=== PATIENT | female | born 1945 | race Caucasian/White ===

== ENCOUNTER → 2016-10-04 | Outpatient (CLI) | payer BC, OTHER ==
[~2016-10-04] MED LIST: ACET-1138 PO; ALPR1TAB3 PO; ASPI81TA25 PO; BENA1TAB53 PO; BIOTPOW17 PO; CHOL1000 PO; CRS/10 PO; HYDR25TA4 PO; MELO7.5T5 PO; NXM/40 PO; ONDA8TAB6 PO; SNK PO; ULT50X PO; VITA400C3 PO
[2016-10-05 10:57] LABS: ESTIMATED AVERAGE GLUCOSE 140 mg/dl; HA1C FLAG Normal (Normal)
== END | disposition home or self-care (01) ==
LOC: C.LABSPEC 09:39
PROVIDERS: ATTEND Internal Medicine
DX: R73.01 Impaired fasting glucose (principal)

== ENCOUNTER 2016-10-29 05:02 | Inpatient (IN) | payer BC, OTHER ==
[2016-10-04 13:01] VITALS: BMI 28.0
--- NOTE | 2016-10-04 13:38 | PAT Medication Instructions ---
Service Date October 04, 2016. Current Home Medication List Alprazolam (Xanax), 1 MG PO HS Aspirin (Aspir-Low), 1 TAB PO HS Benazepril (Lotensin), 40 MG PO QAM Cholecalciferol (Vitamin D3), 1 TAB PO QPM Esomeprazole Magnesium (Nexium), 40 MG PO Q2D Hydrochlorothiazide (Hctz), 25 MG PO QAM Meloxicam (Mobic), 7.5 MG PO QAM Rosuvastatin Calcium (Crestor), 10 MG PO QAM Vitamin E (Vitamin E 400 Iu), 400 INTER.UNIT PO QPM [Biotin], 1,000 MCG PO QPM Medication Instructions For Your Scheduled Surgery Meloxicam (Mobic), 7.5 MG PO QAM (patient will check with surgeon for instructions) - Hold the following medications 2 weeks prior to surgery: Vitamin E (Vitamin E 400 Iu), 400 INTER.UNIT PO QPM Biotin, 1,000 MCG PO QPM - Hold the following medications the morning of surgery: Hydrochlorothiazide (Hctz), 25 MG PO QAM Benazepril (Lotensin), 40 MG PO QAM - Take the following medications the morning of surgery with a sip of water: Rosuvastatin Calcium (Crestor), 10 MG PO QAM Esomeprazole Magnesium (Nexium), 40 MG PO Q2D - Take the following medications as scheduled the night before surgery: Cholecalciferol (Vitamin D3), 1 TAB PO QPM Alprazolam (Xanax), 1 MG PO HS Aspirin (Aspir-Low), 1 TAB PO HS If you have any questions please call us at [phone] or [phone] ( [facility]) or [phone]
--- NOTE | 2016-10-04 14:11 | DIAGNOSTIC IMAGING REPORT ---
CHEST PREADMISSION(PA/LAT) CLINICAL HISTORY: Preoperative chest COMPARISON STUDY: No previous studies for comparison. FINDINGS: The cardiac and mediastinal contours are normal. There is no evidence of focal pulmonary consolidation. There is no evidence of failure. No pleural effusions are visualized.[ IMPRESSION: No active disease in the chest. Electronically signed by: Fabián Townsend M.D. 10/04/2016 2:09 PM Dictated Date/Time: 10/04/2016 2:09 PM
[2016-10-04 14:53] LABS: BASO % 0.5 %; BASO ABS # 0.02 K/uL (0-0.2); COMPLETE YES; EOS % 1.4 %; HEMATOCRIT 39.3 % (37-47); IG% 0.2 %; LYMPH % 31.7 %; LYMPH ABS # 1.35 K/uL (1.2-3.4); MEAN CELL VOLUME 91.6 fL (80-100); MEAN CORPUSCULAR HEMOGLOBIN 30.1 pg (25-34); MEAN CORPUSCULAR HGB CONC 32.8 g/dl (32-36); MEAN PLATELET VOLUME 10.5 fL (7.4-10.4); MONO % 9.6 %; NEUT % 56.6 %; PLATELET COUNT 217 K/uL (130-400); RED BLOOD COUNT 4.29 M/uL (4.2-5.4); WHITE BLOOD COUNT 4.26 K/uL (4.8-10.8)
[2016-10-04 14:59] LABS: URINE APPEARANCE CLEAR (CLEAR); URINE BILIRUBIN NEG (NEG); URINE COLOR YELLOW; URINE EPITHELIAL CELL AUTO 0-5 /lpf (0-5); URINE NITRITE NEG (NEG); URINE SPECIFIC GRAVITY 1.012 (1.000-1.030); UROBILINOGEN NEG (NEG); ZZUR CULT IF INDIC CLEAN CATCH NO
[2016-10-04 15:03] LABS: MANUAL MICROSCOPIC REQUIRED? NO; REVIEW REQ? NO
[2016-10-04 15:03] LABS: PARTIAL THROMBOPLASTIN RATIO 1.1; PROTHROMBIN TIME (PATIENT) 10.4 SECONDS (9.0-12.0)
[2016-10-04 15:10] LABS: BUN/CREATININE RATIO 18.8 (10-20); CALCIUM 9.1 mg/dl (8.5-10.1); CREATININE 0.8 mg/dl (0.60-1.20); POTASSIUM 3.7 mmol/L (3.5-5.1)
--- NOTE | 2016-10-26 08:52 | HISTORY & PHYSICAL EXAMINATION ---
DATE OF ADMISSION: 10/29/2016 CHIEF COMPLAINT: Left hip pain. HISTORY OF PRESENT ILLNESS: Ms. Thao is a 71-year-old female with a 4-year history of left hip pain. The patient rates her pain an 8/10. She has pain with her daily activities. She has limited standing and walking tolerance. Pain is worse with weightbearing. The patient has had injections, home exercise program and Tylenol. She also underwent bursectomy procedure without relief. She has failed conservative treatment and is scheduled for left hip replacement. PAST MEDICAL HISTORY: Hypertension, hypercholesterolemia, and anxiety. She denies heart disease, diabetes or DVT. PAST SURGICAL HISTORY: Left hip bursectomy. SOCIAL HISTORY: She denies alcohol or tobacco use. She lives in a split level home. She is and works as a school athletic director. FAMILY HISTORY: Negative for DVT. MEDICATIONS: Aspirin 81 mg, vitamin D 1000 international units, vitamin E 400 international units, Biotin 1000 mg, benazepril 40 mg, hydrochlorothiazide 25 mg, alprazolam 1 mg at bedtime, Crestor 10 mg, Nexium 40 mg. ALLERGIES: SULFA. REVIEW OF SYSTEMS: See HPI. Ten other systems reviewed, all negative. PHYSICAL EXAMINATION: VITAL SIGNS: Height is 5 foot 4 inches, weight 161 pounds, BMI is 28. GENERAL: This is a well-developed, well-nourished female who is alert and oriented x3. Mood and affect are appropriate. HEAD, EYES, EARS, NOSE, AND THROAT: Normocephalic, atraumatic. Mucous membranes are moist and intact. NECK: Supple without lymphadenopathy. HEART: Regular rate and rhythm without murmurs, rubs or gallops. LUNGS: Clear to auscultation without wheezes or rhonchi. ABDOMEN: Soft and nontender. Bowel sounds are equal and active. EXTREMITIES: No ecchymosis, redness or warmth. Thigh and calf are soft and nontender. Log roll of the hip reproduces pain in the groin. She is neurovascularly intact with +5/5 strength. She walks with an antalgic gait. She has trochanteric tenderness. X-RAY EXAMINATION: AP and lateral views show joint space narrowing and osteophyte formation. IMPRESSION: Degenerative joint disease, left hip. PLAN: The patient will be admitted for a left total hip arthroplasty, direct anterior approach. We will plan on aspirin for DVT prophylaxis. She has [facility] set up for home physical therapy.
[2016-10-29] VITALS (9 sets, daily range): BP systolic 111–132; BP diastolic 72–87; PULSE 75–89; TEMP 36.3–36.6; O2SAT 93–100; Ht 162.6 cm; Wt 73.6 kg
[~2016-10-29] VITALS: Ht 162.6 cm; Wt 73.6 kg
[~2016-10-29 05:02] MED LIST changes: -ACET-1138 PO; -ONDA8TAB6 PO; -SNK PO; -ULT50X PO; +[UNRECOGNIZED DRUG - REMARK] SCH
[2016-10-29] MEDS ORDERED: FAMOTIDINE 20 MG TAB PO SCH (06:00)
[2016-10-29] MEDS ORDERED: DEXAMETHASONE 4 MG TAB PO SCH (06:00)
[2016-10-29] MEDS ORDERED: METOCLOPRAMIDE HCL 10 MG TAB PO SCH (06:00)
[2016-10-29] MEDS ORDERED: ACETAMINOPHEN 500 MG TAB PO SCH (06:00)
[2016-10-29] MEDS ORDERED: LACTATED RINGER'S 1000ML 500 ML IV ONE (06:00)
[2016-10-29] MEDS ORDERED: CEFAZOLIN 2000 MG/60 ML D5W 60 ML IV SCH (06:00)
[2016-10-29] MEDS ORDERED: GABAPENTIN 300 MG CAP PO SCH (06:00)
[2016-10-29] MEDS ORDERED: LACTATED RINGER'S 1000ML 1,000 ML IV SCH (06:00)
[2016-10-29] MEDS ORDERED: ROPIVACAINE 5MG/ML 30 ML 150 MG, BUPIVACAINE/EPINEPHR 0.5% MPF 30 ML, KETOROLAC TROMETH... INFIL SCH ×7 (06:00)
[2016-10-29] MEDS ORDERED: VANCOMYCIN INJ 400 MG in NSS 100ML IR SCH (06:00)
[2016-10-29] MEDS ORDERED: POLYMYXIN B SULFATE 100,000 UNITS in NSS 100ML IR SCH (06:00)
[2016-10-29] MEDS: TRANEXAMIC ACID INJ 1,000 MG in SODIUM CHLORIDE 0.9% 100ML 100 ML IV SCH ×2 (06:02→06:30)
[2016-10-29] MEDS ORDERED: BACITRACIN 50000 UNIT VIAL ONE (06:28)
[2016-10-29] MEDS ORDERED: POVIDONE-IODINE OP SOLN 30 ML BTL ONE (06:28)
[2016-10-29] MEDS ORDERED: ORTHO JOINT ANESTHETIC ONE (06:28)
[2016-10-29] MEDS ORDERED: BUPIVACAINE 0.5 % 5 MG/1 ML PF 10ML VIAL ONE (06:29)
[2016-10-29] MEDS ORDERED: MIDAZOLAM HCL 1 MG/ML 2ML VIAL ONE ×3 (06:37→07:08)
[2016-10-29] MEDS ORDERED: FENTANYL CITRATE INJ 50 MCG/1 ML 2 ML VIAL ONE ×2 (06:38→07:18)
--- NOTE | 2016-10-29 06:40 | History & Physical Bridge Note ---
H&P Re-Evaluation Bridge Note: I have examined the patient, reviewed the History & Physical and in the interval since the performance of the History & Physical I have noted the following changes of clinical significance: No changes noted
[2016-10-29] MEDS ORDERED: LIDOCAINE HCL 2% 2 ML VIAL (20MG/ML) ONE (07:40)
[2016-10-29] MEDS ORDERED: ONDANSETRON INJ 2 MG/ML 2 ML VIAL ONE ×2 (07:40→09:43)
[2016-10-29] MEDS ORDERED: PROPOFOL IV EMULSION 10 MG/ML 20 ML VIAL IV ONE (07:40)
--- NOTE | 2016-10-29 08:25 | [facility] Post Operative Brief Note ---
Immediate Operative Summary Operative Date Oct 29, 2016. Pre-Operative Diagnosis Left Hip Degenerative Joint Disease Post-Operative Diagnosis Left Hip Degenerative Joint Disease Procedure(s) Performed Left Total Hip Arthroplasty, Direct Anterior Approach Surgeon Dr. Dominik Owens Net Developer Software Engineer C Surgeon(s) Lolly Shaffer PA-C Estimated Blood Loss 100mL Findings DJD Specimens A: Left Femoral Head Complication(s) None Disposition Recovery Room / PACU
[2016-10-29] MEDS ORDERED: MoRPHine SULFATE 2 MG/ML CARP IV PRN (08:30)
[2016-10-29] MEDS ORDERED: SOD PHOSPHATE/SOD BIPHOSPHATE ENEMA 132 ML BTL PR PRN (08:30)
[2016-10-29] MEDS ORDERED: BISACODYL 10 MG SUPP PR PRN (08:30)
[2016-10-29] MEDS ORDERED: MAGNESIUM HYDROXIDE SUSP 30 ML UDC PO PRN (08:30)
[2016-10-29] MEDS ORDERED: ALUMINUM/MAGNESIUM/SIMETH (MAALOX MAX) 30 ML UDC PO PRN (08:30)
[2016-10-29] MEDS ORDERED: ZOLPIDEM TARTRATE 5 MG TAB PO PRN (08:30)
[2016-10-29] MEDS ORDERED: DiphenhydrAMINE HCL 50 MG/ML VIAL IV PRN (08:30)
--- NOTE | 2016-10-29 08:38 | DIAGNOSTIC IMAGING REPORT ---
INTRAOPERATIVE LEFT HIP SINGLE VIEW CLINICAL HISTORY: Left hip replacement COMPARISON STUDY: No previous studies for comparison. FINDINGS: A single intraoperative fluoroscopic spot image is provided for interpretation. 9 seconds of fluoroscopic time was utilized. A total left hip arthroplasty is visualized. No dislocation is evident. IMPRESSION: Intraoperative radiograph demonstrating a total left hip arthroplasty. Electronically signed by: Fabián Townsend M.D. 10/29/2016 8:37 AM Dictated Date/Time: 10/29/2016 8:36 AM
[2016-10-29] MEDS: MULTIVITAMIN TAB PO SCH (09:00)
[2016-10-29] MEDS: ROSUVASTATIN CALCIUM 10 MG TAB PO SCH (09:00)
[2016-10-29] MEDS: PANTOprazole SOD 40 MG TAB PO SCH (09:00)
[2016-10-29] MEDS: HYDROCHLOROTHIAZIDE 25 MG TAB PO SCH (09:00)
[2016-10-29] MEDS: ASPIRIN 81 MG ECTAB PO SCH ×2 (09:00→21:35)
[2016-10-29] MEDS: BENAZEPRIL HCL 10 MG TAB PO SCH (09:00)
[2016-10-29] MEDS ORDERED: ONDANSETRON INJ 2 MG/ML 2 ML VIAL IV PRN (09:15)
[2016-10-29] MEDS ORDERED: PHENYLEPHRINE 100MCG/ML 5ML SYR IV PRN (09:15)
[2016-10-29] MEDS ORDERED: HYDROmorphone INJ 2 MG/ML SYR/VIAL IV PRN (09:15)
[2016-10-29] MEDS ORDERED: KETOROLAC TROMETHAMINE 30 MG/ML VIAL IV. PRN (09:15)
[2016-10-29] MEDS ORDERED: ATROPINE SULFATE 0.1 MG/ML 5ML SYR IV PRN (09:15)
[2016-10-29] MEDS ORDERED: EpHEDrine SULFATE INJ 50 MG/ML AMP IV PRN (09:15)
--- NOTE | 2016-10-29 09:53 | Anesthesiology Progress Note ---
Anesthesia Post Op Note Date & Time Oct 29, 2016 at 09:52 Vital Signs Pain Intensity: 0 Vital Signs Past 12 Hours Date Time Temp Pulse Resp B/P (MAP) Pulse Ox O2 Delivery O2 Flow Rate FiO2 10/29/16 09:12 112/54 10/29/16 09:10 90 23 10/29/16 09:10 88 23 99 10/29/16 09:07 103/62 10/29/16 09:05 79 21 10/29/16 09:05 80 21 100 10/29/16 09:02 107/59 10/29/16 09:00 75 16 10/29/16 09:00 76 16 98 10/29/16 08:57 101/60 10/29/16 08:55 75 15 97 10/29/16 08:55 76 15 10/29/16 08:52 94/68 10/29/16 08:50 91 19 10/29/16 08:50 91 19 95 10/29/16 08:47 92/52 10/29/16 08:45 36.8 76 20 92/52 96 Mask 10 10/29/16 05:34 36.6 89 20 126/87 97 Room Air Notes Mental Status: alert / awake / arousable, participated in evaluation Pt Amnestic to Procedure: Yes Nausea / Vomiting: adequately controlled Pain: adequately controlled Airway Patency, RR, SpO2: stable & adequate BP & HR: stable & adequate Hydration State: stable & adequate Anesthetic Complications: no major complications apparent
--- NOTE | 2016-10-29 10:05 | DIAGNOSTIC IMAGING REPORT ---
LEFT PELVIS/UNILATERAL HIP 1 VIEW CLINICAL HISTORY: Left hip degenerative arthritis. Total hip arthroplasty. COMPARISON: None FINDINGS: Alignment of the total left hip arthroplasty is anatomic. There is no periprosthetic fracture or unexpected radiopaque foreign body. Acetabular screw is in place. Surgical drain is noted. IMPRESSION: Expected findings following total left hip arthroplasty. Electronically signed by: Tucker Fischer M.D. 10/29/2016 10:04 AM Dictated Date/Time: 10/29/2016 10:03 AM
[2016-10-29] MEDS: METOCLOPRAMIDE HCL INJ 5 MG/ML 2 ML VIAL IV PRN (11:58)
[2016-10-29] MEDS: KETOROLAC TROMETHAMINE 15 MG/ML VIAL IV. SCH ×3 (12:30→23:22)
[2016-10-29] MEDS: SODIUM CHLORIDE 0.45% 1000ML 1,000 ML IV SCH ×2 (12:30→22:42)
[2016-10-29] MEDS: ACETAMINOPHEN 500 MG TAB PO SCH ×3 (14:00→21:34)
[2016-10-29] MEDS: CEFAZOLIN IV 1,000 MG in DEXTROSE 5% 50ML 50 ML IV SCH ×2 (14:40→22:34)
[2016-10-29] MEDS: ONDANSETRON INJ 2 MG/ML 2 ML VIAL IV PRN (15:10)
[2016-10-29] MEDS ORDERED: TRANEXAMIC ACID INJ 1,000 MG in SODIUM CHLORIDE 0.9% 100ML 100 ML IV ONE (15:30)
[2016-10-29] MEDS: TRAMADOL HCL 50 MG TAB PO PRN ×2 (18:04→23:21)
--- NOTE | 2016-10-29 20:48 | OPERATIVE REPORT ---
DATE OF OPERATION: 10/29/2016 PREOPERATIVE DIAGNOSIS: Degenerative arthritis, left hip. POSTOPERATIVE DIAGNOSIS: Same. PROCEDURE: Left total hip replacement. SURGEON: Dr. Owens. NUCLEAR POWERPLANT MECHANIC HELPER: EVER Vidal ANESTHESIA: Spinal. BLOOD LOSS: 100 mL. REPLACEMENT FLUIDS: 1800 mL crystalloid. DRAINS: Hemovacs x2. CULTURES: None. COMPLICATIONS: None. COMPONENTS USED: [employer] hip system: Acetabulum size 38, femur size 3 standard offset, femoral head 0, neck length 32 mm. NOTE: Lolly Shaffer was present and assisted throughout due to the complicated nature of this case. She helped with preparation and set up. She first assisted throughout and she personally closed the fascial, subcutaneous and skin layers and applied the postoperative dressing. DESCRIPTION OF PROCEDURE: Following satisfactory spinal, the patient was supine. The left leg was placed in the traction device, the right leg was placed in the well leg hernandez. The left leg was prepared with ChloraPrep and draped sterilely. Following a surgical time-out, an anterior approach was performed in the interval between the sartorius and tensor muscles. The circumflex femoral vessels were identified and ligated. An anterior capsulotomy was performed exposing a severely arthritic femoral neck and head. The femoral neck and head were trimmed and removed. The acetabular self-retraining retractors placed. Under fluoroscopic guidance, the acetabulum was reamed, a 48 shell was impacted into an anatomic position and secured with a dome screw. Local anesthetic was placed and after irrigation, the polyethylene liner was placed. The femur was then placed in a position of external rotation, extension and adduction. Femoral canal was prepared up to a size 3. Intraoperative fluoroscopy showed good fit and fill of the proximal canal and baptist of leg lengths using fluoroscopic landmarks. The hip was dislocated. The trial component was removed. The final implant was placed. The hip was reduced and a Betadine soak was performed. Fluoroscopy confirmed the position. After 3 minutes, the Betadine was irrigated. The capsule was closed with 1 Vicryl interrupted. A drain was placed. The fascia was then closed with a running suture of 1 Vicryl. The subcutaneous tissues with 1 and 2-0 Vicryl and the skin with a running subcuticular stitch of 3-0 V-Loc. Dermabond and a dry dressing were applied. The patient was returned to her bed in stable condition. I attest to the content of the Intraoperative Record and any orders documented therein. Any exception s are noted below.
[2016-10-29] MEDS: SENNA 8.6 MG TAB PO SCH (21:35)
[2016-10-29] MEDS: TOCOPHERYL, DL-ALPHA 400 INTER.UNIT CAP PO SCH (21:36)
[2016-10-29] MEDS: CHOLECALCIFEROL 1000 INTER.UNIT TAB PO SCH (21:37)
[2016-10-29] MEDS: ALPRAZOLAM 0.5 MG TAB PO SCH (22:39)
[2016-10-30] VITALS (7 sets, daily range): BP systolic 105–126; BP diastolic 67–76; PULSE 70–77; TEMP 36.3–36.8; O2SAT 92–98
[2016-10-30] MEDS: TRAMADOL HCL 50 MG TAB PO PRN ×4 (03:52→21:36)
[2016-10-30] MEDS: KETOROLAC TROMETHAMINE 15 MG/ML VIAL IV. SCH ×4 (05:38→23:56)
[2016-10-30] MEDS: ACETAMINOPHEN 500 MG TAB PO SCH ×3 (05:38→21:34)
[2016-10-30 07:35] LABS: BASO % 0.1 %; BASO ABS # 0.01 K/uL (0-0.2); COMPLETE YES; HEMATOCRIT 27.6 % (37-47); IG% 0.2 %; LYMPH % 7.5 %; LYMPH ABS # 1.27 K/uL (1.2-3.4); MEAN CELL VOLUME 90.5 fL (80-100); MEAN CORPUSCULAR HEMOGLOBIN 31.1 pg (25-34); MEAN CORPUSCULAR HGB CONC 34.4 g/dl (32-36); MEAN PLATELET VOLUME 10.4 fL (7.4-10.4); MONO % 7.5 %; NEUT % 84.7 %; PLATELET COUNT 201 K/uL (130-400); RED BLOOD COUNT 3.05 M/uL (4.2-5.4)
--- NOTE | 2016-10-30 07:51 | Orthopedic Progress Note ---
Orthopedic Progress Note Date of Service Oct 30, 2016. Subjective Post OP Day: 1 Reports: feeling well, calf pain, Denies: chest pain, SOB, nausea / vomiting Additional Notes: Pt having some mild burning on urination since surgery. No han used. No other complaints. Objective calves soft nontender, N/V intact, hip located, dressing C/D/I, A&O x3, toes mobile Date Time Temp Pulse Resp B/P (MAP) Pulse Ox O2 Delivery O2 Flow Rate FiO2 10/30/16 03:41 36.8 77 16 105/67 (80) 95 Room Air 10/30/16 00:00 Room Air 10/29/16 22:54 36.4 86 16 129/84 (99) 93 Room Air 10/29/16 20:17 36.4 86 19 118/72 (87) 95 Room Air 10/29/16 16:29 Nasal Cannula 2.0 10/29/16 14:59 36.4 88 18 121/78 (92) 97 Nasal Cannula 2.0 10/29/16 13:21 82 18 111/74 (86) 100 Nasal Cannula 2.0 10/29/16 12:10 80 16 112/75 (87) 100 Nasal Cannula 2.0 10/29/16 11:10 75 20 113/74 (87) 99 Nasal Cannula 2.0 10/29/16 10:40 76 16 132/83 (99) 100 Nasal Cannula 2.0 10/29/16 10:21 100 2.0 10/29/16 10:20 Nasal Cannula 2.0 10/29/16 10:11 36.3 75 16 113/74 (87) 100 Nasal Cannula 2.0 10/29/16 10:01 36.1 72 17 123/63 97 Nasal Cannula 2 10/29/16 09:51 36.1 73 17 110/78 100 Nasal Cannula 2 10/29/16 09:48 71 20 10/29/16 09:48 71 20 97 10/29/16 09:47 112/64 10/29/16 09:43 74 15 10/29/16 09:43 73 15 99 10/29/16 09:42 110/70 10/29/16 09:38 72 17 97 10/29/16 09:38 73 17 10/29/16 09:37 115/63 10/29/16 09:33 72 16 10/29/16 09:33 72 16 97 10/29/16 09:32 108/62 10/29/16 09:28 74 20 98 10/29/16 09:28 73 20 10/29/16 09:27 111/65 10/29/16 09:23 75 18 10/29/16 09:23 75 18 96 10/29/16 09:22 108/70 10/29/16 09:18 78 17 97 10/29/16 09:18 76 17 10/29/16 09:17 109/63 10/29/16 09:13 74 16 10/29/16 09:13 75 16 98 10/29/16 09:12 112/54 10/29/16 09:10 90 23 10/29/16 09:10 88 23 99 10/29/16 09:07 103/62 10/29/16 09:05 79 21 10/29/16 09:05 80 21 100 10/29/16 09:02 107/59 10/29/16 09:00 75 16 10/29/16 09:00 76 16 98 10/29/16 08:57 101/60 10/29/16 08:55 75 15 97 10/29/16 08:55 76 15 10/29/16 08:52 94/68 10/29/16 08:50 91 19 10/29/16 08:50 91 19 95 10/29/16 08:47 92/52 10/29/16 08:45 36.8 76 20 92/52 96 Mask 10 Laboratory Results 24 Hours: Test 10/30/16 07:03 White Blood Count 17.00 K/uL Red Blood Count 3.05 M/uL Hemoglobin 9.5 g/dL Hematocrit 27.6 % Mean Corpuscular Volume 90.5 fL Mean Corpuscular Hemoglobin 31.1 pg Mean Corpuscular Hemoglobin Concent 34.4 g/dl Platelet Count 201 K/uL Mean Platelet Volume 10.4 fL Neutrophils (%) (Auto) 84.7 % Lymphocytes (%) (Auto) 7.5 % Monocytes (%) (Auto) 7.5 % Eosinophils (%) (Auto) 0.0 % Basophils (%) (Auto) 0.1 % Neutrophils # (Auto) 14.41 K/uL Lymphocytes # (Auto) 1.27 K/uL Monocytes # (Auto) 1.27 K/uL Eosinophils # (Auto) 0.00 K/uL Basophils # (Auto) 0.01 K/uL Assessment & Plan Assessment: POD 1 s/p Left EMANUEL Mild burning on urination. Plan: PT/OT Planning for dc to home with Services Will get UA today Possible dc home today Inhouse Planning Pain Management: Toradol, Ultram, Morphine, PO Tylenol DVT Prophylaxis: TEDs, SCDs, ASA Discharge Planning Discharge Planning: home with home health Pain Management: Ultram, PO Tylenol DVT Prophylaxis: TEDs, ASA Therapy: Physical Therapy
[2016-10-30 08:06] LABS: BUN/CREATININE RATIO 28.9 (10-20); CREATININE 0.72 mg/dl (0.60-1.20); POTASSIUM 4.1 mmol/L (3.5-5.1)
[2016-10-30] MEDS ORDERED: ULT50X PO (08:06)
[2016-10-30] MEDS ORDERED: SNK PO (08:06)
[2016-10-30] MEDS ORDERED: ASPI81TA25 PO (08:06)
[2016-10-30] MEDS ORDERED: ACET-1138 PO (08:06)
[2016-10-30] MEDS ORDERED: ONDA8TAB6 PO (08:06)
--- NOTE | 2016-10-30 08:07 | Discharge Instructions ---
Discharge Instructions Date of Service Oct 30, 2016. Admission Reason for Admission: Left Hip Degenerative Arthritis Discharge Discharge Diagnosis / Problem: sp left EMANUEL, direct anterior Discharge Goals Goal(s): Decrease discomfort, Improve function, Increase independence Activity Recommendations Activity Limitations: per Instructions/Follow-up section . Instructions / Follow-Up Instructions / Follow-Up ACTIVITY RECOMMENDATIONS: SELF CARE INSTRUCTIONS AFTER TOTAL HIP REPLACEMENT : Direct Anterior Approach Until the incision and soft tissues around your hip have healed, there is a possibility that the hip prosthesis could dislocate. A. Hip flexion ( Up & Down out of chair or steps ) may be difficult. This is normal. B. Numbness in front of the thigh is also normal for a few weeks. C. Use hand rails when walking on stairs. D. Wear low heeled shoes with non-slip soles. E. Be sure that your floors are free of things that could trip you - throw rugs , electrical cords, small objects. Avoid wet and waxed floors, especially with crutches and canes. F. Try to walk several times a day with rest periods between. G. Continue with all the exercises taught to you in the hospital. Again, make walking a part of your daily routine. SPECIAL CARE INSTRUCTIONS: VERY IMPORTANT TO READ AND REVIEW A. You may still be at risk for phlebitis and blood clots. 1. Wear surgical stockings (JENNIFER hose) for 2 weeks after surgery to improve circulation and reduce swelling. 2. Take Aspirin 81mg twice daily for 4 weeks or as directed by your doctor. This is your blood thinner. 3. High risk patients may be prescribed a stronger blood thinner if necessary. 4. If you are on Coumadin normally, your family doctor/senior abap developer should monitor your blood work. Expect a phone call the day of or the day after bloodwork is drawn to adjust your dosage. B. You must take antibiotics before having dental work, bladder, bowel and other surgery. Your doctor will provide you with a permanent card to carry describing precautions. C. Call [facility] if you have a fever, redness or swelling around the incision, cloudy drainage from incision, or sudden increase in pain in your hip, not relieved by your regular pain medication. D. Please call the office at if you have any concerns or questions about your operation or recovery. * YOU MAY SHOWER, NO TUB BATHS UNTIL CLEARED BY YOUR DOCTOR. - Keep an extra close eye on the top portion of your incision. Be sure to keep clean & dry. * WEAR JENNIFER HOSE 20 HOURS PER DAY FOR 2 WEEKS. * YOU MAY PROGRESS FROM A WALKER, TO A CANE, TO INDEPENDENT AT YOUR OWN PACE. * MOST PATIENTS WILL HAVE HOME NURSING FOR THERAPY. IF YOU DECIDE TO DO OUTPATIENT PHYSICAL THERAPY, PLEASE SCHEDULE THIS 3 TIMES PER WEEK. * DERMABOND Prineo- This is a mesh tape dressing that is covered with glue. It should remain in place until the incision is properly healed, usually 10-14 days. This dressing is designed to naturally slough off. You may trim the excess mesh tape as it peels off. Incision may be briefly wet in a shower. Dry immediately by blotting with a clean, dry towel. Do not bath or swim until instructed by your doctor. Do not scratch, rub, or pick at the dressing. Do not apply any topical ointments or lotions until dressing is completely removed and/or instructed by your doctor. There may be a small piece of suture material at one end of your incision. Do not pull or trim this. If it is bothersome or catching on clothing, you may cover it with a band-aid. FOLLOW UP VISIT: If appointment is not already scheduled: Please call [facility] to make a follow-up appointment for 2 weeks after your surgery at . Current Hospital Diet Patient's current hospital diet: Regular Diet Discharge Diet Recommended Diet: Regular Diet Procedures Procedures Performed: Left Total Hip Arthroplasty, Direct Anterior Approach Pending Studies Studies pending at discharge: no Laboratory Results Hemoglobin A1c Test 10/04/16 13:47 Range/Units Estimated Average Glucose 140 mg/dl Hemoglobin A1c 6.5 H 4.5-5.6 % Medical Emergencies . Who to Call and When: Medical Emergencies: If at any time you feel your situation is an emergency, please call 911 immediately. . Non-Emergent Contact Non-Emergency issues call your: Surgeon . "Provider Documentation" section prepared by Lolly Shaffer. . VTE Core Measure Inpt VTE Proph given/why not?: Other Anticoagulation, T.E.D. Stockings, SCD's [place] Drug Monitoring Program Search Results: patient reviewed within database, no issues identified
[2016-10-30 08:20] LABS: CALCIUM 7.9 mg/dl (8.5-10.1)
[2016-10-30] MEDS: SODIUM CHLORIDE 0.45% 1000ML 1,000 ML IV SCH ×2 (08:34→18:03)
[2016-10-30] MEDS: ROSUVASTATIN CALCIUM 10 MG TAB PO SCH (08:35)
[2016-10-30] MEDS: HYDROCHLOROTHIAZIDE 25 MG TAB PO SCH (08:35)
[2016-10-30] MEDS: MULTIVITAMIN TAB PO SCH (08:36)
[2016-10-30] MEDS: BENAZEPRIL HCL 10 MG TAB PO SCH (08:37)
[2016-10-30] MEDS: PANTOprazole SOD 40 MG TAB PO SCH (08:37)
[2016-10-30] MEDS: ASPIRIN 81 MG ECTAB PO SCH ×2 (08:38→21:33)
--- NOTE | 2016-10-30 09:37 | Anesthesiology Progress Note ---
Anesthesia Post Op Note Date & Time Oct 30, 2016 at 09:37 Vital Signs Pain Intensity: 4.0 Vital Signs Past 12 Hours Date Time Temp Pulse Resp B/P (MAP) Pulse Ox O2 Delivery O2 Flow Rate FiO2 10/30/16 08:08 95 Room Air 10/30/16 07:47 36.3 72 17 126/76 (93) 95 Room Air 10/30/16 03:41 36.8 77 16 105/67 (80) 95 Room Air 10/30/16 00:00 Room Air 10/29/16 22:54 36.4 86 16 129/84 (99) 93 Room Air Notes Mental Status: alert / awake / arousable, participated in evaluation Pt Amnestic to Procedure: Yes Nausea / Vomiting: adequately controlled Pain: adequately controlled Airway Patency, RR, SpO2: stable & adequate BP & HR: stable & adequate Hydration State: stable & adequate Neuraxial Anesthesia: sensory block resolved Anesthetic Complications: no major complications apparent
[2016-10-30 10:05] LABS: URINE APPEARANCE CLEAR (CLEAR); URINE BILIRUBIN NEG (NEG); URINE COLOR YELLOW; URINE EPITHELIAL CELL AUTO >30 /lpf (0-5); URINE NITRITE NEG (NEG); URINE PH 5.5 (4.5-7.5); URINE SPECIFIC GRAVITY 1.034 (1.000-1.030); UROBILINOGEN NEG (NEG); ZZUR CULT IF INDIC CLEAN CATCH YES
[2016-10-30 10:14] LABS: MANUAL MICROSCOPIC REQUIRED? NO; REVIEW REQ? YES
[2016-10-30] MEDS: ONDANSETRON INJ 2 MG/ML 2 ML VIAL IV PRN (11:27)
[2016-10-30] MEDS: METOCLOPRAMIDE HCL INJ 5 MG/ML 2 ML VIAL IV PRN (13:16)
[2016-10-30] MEDS ORDERED: NURSING VERBAL MED ORDER ONE (16:00)
[2016-10-30] MEDS ORDERED: PROMETHAZINE HCL INJ 25 MG in SODIUM CHLORIDE 0.9% 50ML 50 ML IV PRN (16:30)
[2016-10-30] MEDS: SENNA 8.6 MG TAB PO SCH (21:00)
[2016-10-30] MEDS: TOCOPHERYL, DL-ALPHA 400 INTER.UNIT CAP PO SCH (21:00)
[2016-10-30] MEDS: CHOLECALCIFEROL 1000 INTER.UNIT TAB PO SCH (21:00)
[2016-10-30] MEDS: ALPRAZOLAM 0.5 MG TAB PO SCH (23:21)
[2016-10-31] MEDS: SODIUM CHLORIDE 0.45% 1000ML 1,000 ML IV SCH (03:57)
[2016-10-31] MEDS: KETOROLAC TROMETHAMINE 15 MG/ML VIAL IV. SCH (05:22)
[2016-10-31] MEDS: ACETAMINOPHEN 500 MG TAB PO SCH (05:22)
[2016-10-31 07:37] VITALS: BP 126/72; PULSE 74; TEMP 36.7; O2SAT 92
--- NOTE | 2016-10-31 07:49 | Orthopedic Progress Note ---
Orthopedic Progress Note Date of Service Oct 31, 2016. Subjective Post OP Day: 2 Reports: feeling well, Denies: chest pain, SOB, nausea / vomiting, light headedness, calf pain Objective calves soft nontender, N/V intact, hip located, dressing C/D/I, A&O x3, toes mobile Date Time Temp Pulse Resp B/P (MAP) Pulse Ox O2 Delivery O2 Flow Rate FiO2 10/31/16 07:37 36.7 74 18 126/72 (90) 92 Room Air 10/31/16 00:00 Room Air 10/30/16 22:55 36.7 75 16 115/72 (86) 92 Room Air 10/30/16 15:45 Room Air 10/30/16 15:04 36.6 75 16 111/69 (83) 98 Room Air 10/30/16 11:48 36.3 70 18 124/72 (89) 98 Room Air 10/30/16 08:08 95 Room Air Assessment & Plan Assessment: POD 2 s/p Left EMANUEL Plan: PT/OT Planning for dc to home with Services Will get UA today- CULTURE PENDING dc home today Inhouse Planning Pain Management: Toradol, Ultram, Morphine, PO Tylenol DVT Prophylaxis: TEDs, SCDs, ASA Discharge Planning Discharge Planning: home with home health (DC HOME TODAY) Pain Management: Ultram, PO Tylenol DVT Prophylaxis: TEDs, ASA Therapy: Physical Therapy
[2016-10-31 08:41] VITALS: O2SAT 92
[2016-10-31] MEDS: BENAZEPRIL HCL 10 MG TAB PO SCH (08:50)
[2016-10-31] MEDS: MULTIVITAMIN TAB PO SCH (08:50)
[2016-10-31] MEDS: ASPIRIN 81 MG ECTAB PO SCH (08:50)
[2016-10-31] MEDS: PANTOprazole SOD 40 MG TAB PO SCH (08:51)
[2016-10-31] MEDS: HYDROCHLOROTHIAZIDE 25 MG TAB PO SCH (08:51)
[2016-10-31] MEDS: ROSUVASTATIN CALCIUM 10 MG TAB PO SCH (08:51)
[2016-10-31] MEDS: TRAMADOL HCL 50 MG TAB PO PRN (08:52)
[2016-10-31 09:28] VITALS: BP 126/72; PULSE 74; TEMP 36.7; O2SAT 92
--- NOTE | 2016-11-05 15:23 | DISCHARGE SUMMARY ---
DISCHARGE DIAGNOSIS: Degenerative joint disease, left hip. SECONDARY DIAGNOSIS: None. CONSULTS: None. COMPLICATIONS: None. PROCEDURE: The patient underwent a left direct anterior total hip arthroplasty with Dr. Owens on 10/29/2016. BRIEF HISTORY: Please see previously dictated history and physical. HOSPITAL SUMMARY: The patient was admitted on the above day for the above procedure. Procedure went without complication. Postop day #1, the patient was feeling well but she was complaining of some mild burning on urination, no other complaints. Vital signs were stable. She was afebrile. Hip was located. Dressing was clean, dry and intact. She was neurovascularly intact. Calves were soft and nontender. Hemoglobin was 9.5. The patient began physical therapy per protocol. UA was ordered. Postop day #2, the patient continued to do well. Vital signs were stable. She was afebrile. Urinary symptoms were resolved. Dressing was clean, dry and intact. She was neurovascularly intact. Calves were soft and nontender. Urine was negative for nitrites. She was discharged to home later that day in stable condition. For further review please see the chart. Laboratory, x-ray data and discharge instructions as per chart.
== END 2016-10-31 11:05 | disposition home health service (06) | DRG 470 ==
LOC: C.ACU 05:02 → C.3E 06:00 → ENRESERV 09:16
PROVIDERS: ADMIT Orthopaedic Surgery; ATTEND Orthopaedic Surgery
PROC: 0SRB04A Replacement of Left Hip Joint with Ceramic on Polyethylene Synthetic Substitute, Uncemented, Open Approach (ICD-10-PCS; principal; 2016-10-30)
DX: M16.12 Unilateral primary osteoarthritis, left hip (principal); E78.00 Pure hypercholesterolemia, unspecified; I10 Essential (primary) hypertension; K21.9 Gastro-esophageal reflux disease without esophagitis; F41.9 Anxiety disorder, unspecified; Z79.82 Long term (current) use of aspirin; Z79.899 Other long term (current) drug therapy; Z79.1 Long term (current) use of non-steroidal anti-inflammatories (NSAID)